=== PATIENT | male | born 1990 | race Caucasian/White ===

== ENCOUNTER 2023-06-03 02:30 | Emergency (ER) | payer SELFPAY ==
[2023-06-03] MEDS ORDERED: Ketorolac 30 MG/ML SDV IM ONE (03:50)
== END 2023-06-03 04:11 | disposition home or self-care (01) ==
LOC: MW.ED 02:30
DX: S20.211A Contusion of right front wall of thorax, initial encounter (principal); W22.8XXA Striking against or struck by other objects, initial encounter
CPT/HCPCS: 71101; 96372; 99283; J1885; 99282